=== PATIENT | male | born 1940 | race Caucasian/White ===

== ENCOUNTER 2019-05-02 08:41 | Outpatient (CLI) | payer MEDICARE, OTHER ==
[~2019-05-02] VITALS: Ht 172.7 cm; Wt 90.9 kg
[2019-05-02] MEDS ORDERED: LISINOPRIL20 MG PO (08:58)
[2019-05-02] MEDS ORDERED: FLOMAX0.4 MG PO (09:00)
[2019-05-02 09:18] VITALS: BP 154/87; Ht 172.7 cm; Wt 90.9 kg
[2019-05-02 09:52] LABS: ALT (SGPT) 28 U/L (10-68); CALC OSMOLALITY 267 mosm/kg (275-300); CALCIUM 9.3 mg/dL (8.5-10.1); CARBON DIOXIDE 30.7 mmol/L (21.0-32.0); CHLORIDE - SERUM 99 mmol/L (98-107); CHOL - HDL RATIO 3.9 ratio (2.3-4.9); CHOLESTEROL, TOTAL 171 mg/dL (0-200); CREATININE - SERUM 0.8 mg/dL (0.6-1.3); GLUCOSE 116 mg/dL (74-106); HDL CHOLESTEROL 44 mg/dL (32-96); LDL CHOLESTEROL 110 mg/dL (0-100); LDL-HDL RATIO 2.5 ratio (1.5-3.5); POTASSIUM - SERUM 4.1 mmol/L (3.5-5.1); SODIUM 133 mmol/L (136-145); TRIGLYCERIDE 86 mg/dL (30-200); UREA NITROGEN 16 mg/dL (7-18); eGFR NON AFRICAN AMERICAN > 90 mL/min (90-120)
[2019-05-02 10:19] LABS: BASOPHILS 0.3 % (0-2); EOSINOPHILS 2.8 % (0-7); HEMOGLOBIN 16.3 g/dL (13.5-17.5); IMMATURE GRANULOCYTES 0.3 % (0-5); LYMPHOCYTES 14.9 % (15-50); MCH 32.5 pg (26.0-34.0); MCHC 35.4 g/dL (31.0-37.0); MCV 91.6 fL (80.0-100.0); MONOCYTES 12.1 % (2-11); NEUTROPHILS 69.6 % (40-80); PLATELET COUNT 157 10x3/uL (130-400); RBC 5.02 10x6/uL (4.20-6.10); RDW 13.2 % (11.5-14.5)
--- NOTE | 2019-05-02 13:20 | NUR ---
PT UP STANDING IN ROOM DRESSING SELF, STATES HE IS TIRED OF WAITING AND IS GOING TO LEAVE. I EXPLAINED THAT HE WAS NEXT AND APOLOGIZED FOR THE WAIT BUT THE OTHER CASES RAN OVER. HE STILL WANTED TO LEAVE SO I TOLD HIM I NEEDED TO GET HIS IV OUT AND I WOULD BE BACK. WHEN NURSE GOT BACK TO ROOM HE HAD ALREADY REMOVED THE IV, SO BANDAID WAS APPLIED. 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
== END 2019-05-02 13:35 | disposition home or self-care (01) ==
LOC: D.CATH 08:41
PROVIDERS: ATTEND Internal Medicine Interventional Cardiology
DX: I25.110 Atherosclerotic heart disease of native coronary artery with unstable angina pectoris (principal); R94.30 Abnormal result of cardiovascular function study, unspecified; Z53.29 Procedure and treatment not carried out because of patient's decision for other reasons